=== PATIENT | male | born 1970 | race Caucasian/White ===

== ENCOUNTER 2019-08-13 15:19 | Emergency (ER) | payer OTHER ==
[2019-08-13] MEDS ORDERED: NORCO 5-325 TA1 EACH PO (16:53)
== END 2019-08-13 17:18 | disposition home or self-care (01) ==
LOC: ED 15:19
PROC: 0HQ1XZZ Repair Face Skin, External Approach (ICD-10-PCS; principal; 2019-08-13)
DX: S01.111A Laceration without foreign body of right eyelid and periocular area, initial encounter (principal); T14.8XXA Other injury of unspecified body region, initial encounter; M79.644 Pain in right finger(s); V23.4XXA Motorcycle driver injured in collision with car, pick-up truck or van in traffic accident, initial encounter
CPT/HCPCS: 12011; 70450; 71046; 72040; 72170; 73140; 99284-25; J3010